=== PATIENT | female | born 1950 | race Caucasian/White ===

== ENCOUNTER → 2018-04-02 13:12 | Outpatient (CLI) | payer MEDICARE, BC, SELFPAY | PROVIDERS: PCP Family Medicine; Visit Provider Internal Medicine Cardiovascular Disease | DX: I25.810 Atherosclerosis of coronary artery bypass graft(s) without angina pectoris (principal); Z95.5 Presence of coronary angioplasty implant and graft | CPT/HCPCS: 99213 ==

== ENCOUNTER 2021-11-23 07:59 | Outpatient (CLI) | payer MEDICARE, SELFPAY ==
--- NOTE | 2021-11-23 07:45 | RT.EKG_ITS ---
APPROVED REPORT Exam: Resting ECG Reason for Exam: CAD Patient Location: O HR:78 bpm ECG Measurements Heart Rate 78 AXIS MS 146 P 35 QRSd 101 QRS -48 QT 387 T 29 QTc 441 Conclusion Sinus rhythm...normal P axis, V-rate 50- 99 Left anterior fascicular block Low voltage Poor R wave progression
== END 2021-11-23 08:00 | disposition home or self-care (01) ==
LOC: DI.CARD 07:59
PROVIDERS: PCP Family Medicine; Visit Provider Internal Medicine Cardiovascular Disease
DX: I25.10 Atherosclerotic heart disease of native coronary artery without angina pectoris (principal)
CPT/HCPCS: 93010

== ENCOUNTER → 2021-11-23 10:37 | Outpatient (BNVA) | payer MEDICARE, SELFPAY | PROVIDERS: PCP Family Medicine; Referring Provider Family Medicine; Visit Provider Internal Medicine Cardiovascular Disease | DX: R06.02 Shortness of breath (principal); I25.10 Atherosclerotic heart disease of native coronary artery without angina pectoris | CPT/HCPCS: 93005; 99203 ==

== ENCOUNTER → 2021-12-10 00:11 | Outpatient (CLI) | payer MEDICARE, SELFPAY | PROVIDERS: PCP Family Medicine; Visit Provider Internal Medicine Cardiovascular Disease ==

== ENCOUNTER → 2021-12-24 01:51 | Outpatient (CLI) | payer MEDICARE, SELFPAY | PROVIDERS: PCP Family Medicine; Visit Provider Internal Medicine Cardiovascular Disease ==

== ENCOUNTER 2022-01-15 01:35 | Outpatient (CLI) | payer MEDICARE, SELFPAY ==
--- NOTE | 2022-01-15 10:28 | DI.US_ITS ---
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 Estimated ejection fraction is 60%. Wall m otion is normal Normal right ventricular size and systolic function Both atria are normal in size Trileaflet aortic valve without stenosis or regurgitation Mitral annular calcification. Trace mitral regurgitation Normal tricuspid valve with trace regurgitation. Right ventricular systolic pressure could not be es timated Wall motion Left Ventricle The left ventricle is normal size. The left ventricular systolic function is normal. The left ventric ular ejection fraction is within the normal range. There is normal left ventricular wall thickness. T here is normal LV segmental wall motion. There is no ventricular septal defect visualized. LVEF is 59 %. Right Ventricle The right ventricle is normal size. The right ventricular systolic function is normal. Atria The left atrium size is normal. The right atrium size is normal. The interatrial septum is intact wit h no evidence for an atrial septal defect. Aortic Valve The aortic valve is normal in structure. Aortic valve is trileaflet. There is no aortic valvular sten osis. No aortic regurgitation is present. Mitral Valve Moderate mitral annular calcification. No evidence of mitral valve stenosis. Trace mitral regurgitati on. Tricuspid Valve The tricuspid valve is normal in structure. There is no tricuspid valve stenosis. Trace tricuspid reg urgitation. Unable to assess PA pressure. Pulmonic Valve The pulmonary valve is normal in structure. There is no pulmonic valvular stenosis. There is no pulmo aria valvular regurgitation. Great Vessels The aortic root is normal in size. The ascending aorta is normal in size. Aortic arch is not well vis ualized. IVC is normal in size and collapses >50% with inspiration. Pericardium There is no pericardial effusion. 2D Dimensions IVSD d PLAX 0.95 cm F: 0.6-1.0 LV Vol A2C d MOD 61.2 mL LVPW d PLAX 0.90 cm F: 0.6 - 1.0 LV Vol A4C d MOD 59.4 mL LVID d PLAX 4.07 cm F: 3.8 - 5.2 LA vol/ BSA A2C s A-L 22.9 mL/m2 LVDs 2.80 cm F: 2.2 - 3.5 LA vol/ BSA A4C s A-L 22.3 mL/m2 Ao Root d 2.72 cm F: 2.7 - 3.3 LA Vol/ BSA Biplane s A-L 23.8 mL/m2 RA Area A4C 10.51 cm2 LA Area A4C s MOD 16.88 cm2 RA Vol/ BSA A4C s A-L 11.3 mL/m2 LA Area A2C s MOD 16.23 cm2 Ao Asc Diam d 3.02 cm F: 2.3 - 3.1 LV EF A4C MOD 59.2 % LV EF Teichholz 59.0 % LV EF A2C MOD 58.3 % LVEF (Gale's) 58.57 % F: 54 - 74 LV EF Biplane MOD 58.6 % LV Volume 45.94 mL F: 46 - 106 SV 35.33 mL LV Volume Index 24.05 mL/m2 F: 29 - 61 SV Index 18.48 mL/m2 LV Vol Biplane MOD 60.3 mL FS 30.85 % M-Mode TAPSE 2.54 cm (M/F) >1.7 LV Diastology MV E' medial 0.065 (>0.07 m/s) E/A Ratio 0.6 LV E/e MED 14.90 (<14) MV E Vmax 0.97 (0.4-1.3 m/s) MV E' lateral 0.068 (>0.1 m/s) MV A Vmax 1.50 (0.4-1.3 m/s) LV E/e LAT 14.15 (<14) MV E/A Ratio 0.64 MV E/E' medial 14.90 MV E/E' lateral 14.19 Aortic Valve LVOT Area 3.08 cm2 AoV Area Vmax 2.57 cm2 LVOT Vmax 1.41 m/s AoV Area/ BSA (Vmax) 1.35 cm2/m2 LVOT Mean Joaquin. 0.92 m/s MACHELLE Mean Joaquin. 2.17 cm2 LVOT Peak Grad 7.9 mmHg MACHELLE Mean Joaquin. Index 1.13 cm2/m2 LVOT Mean Grad 4.0 mmHg LVOT VTI 0.237 m LVOT Diam s 1.95 cm AoV Vmax 1.69 m/s Velocity Ratio 0.83 AoV Mean Joaquin. 1.31 m/s AoV Peak Grad 11.4 mmHg LVOT SV 73.17 mL AoV Mean Grad 7.3 mmHg AoV VTI 0.332 m AoV Area VTI 2.20 cm2 AoV Area/ BSA (VTI) 1.15 cm/m2 Mitral Valve MV DT 418 (160-240 msec) MV PHT 121 msec MV Area PHT 1.81 cm2 MV VTI 0.377 m MV Area VTI 1.94 (4.0-6.0 cm2) Pulmonary Valve PV Vmax 1.29 (0.5-1.5 m/s) RVOT Peak Gr. 2.32 mmHg PV Peak Grad 6.6 mmHg RVOT Mean Gr. 1.35 mmHg PV Mean Grad 3.4 mmHg RVOT VTI 0.156 m PV VTI 0.251 m RVOT Vmax 0.76 m/s
== END 2022-01-15 01:55 ==
LOC: DI 01:35
PROVIDERS: PCP Family Medicine; Visit Provider Internal Medicine Cardiovascular Disease
DX: I25.10 Atherosclerotic heart disease of native coronary artery without angina pectoris (principal)
CPT/HCPCS: 93306

== ENCOUNTER → 2022-01-24 14:26 | Outpatient (BNVA) | payer MEDICARE, SELFPAY | PROVIDERS: PCP Family Medicine; Referring Provider Family Medicine; Visit Provider Internal Medicine Cardiovascular Disease | DX: I25.10 Atherosclerotic heart disease of native coronary artery without angina pectoris (principal); R06.02 Shortness of breath | CPT/HCPCS: 99213 ==